=== PATIENT | female | born 1985 | race Two or more races ===

== ENCOUNTER 2018-11-20 20:36 | Emergency (ER) | payer SELFPAY ==
[~2018-11-20] VITALS: Ht 162.6 cm; Wt 59.0 kg
--- NOTE | 2018-11-20 20:37 | NUR ---
Note [email or web address] in EDM - 11/20/18 at 2044 by ANALIA ED Nurse Note: PT JOAO RA 28 D/T BEHAVIORAL COMPLAINT. 911 WAS CALLED IN VIA [employer]. PT IS UNABLE TO SPEAK CLEAR SENTENCES. PT IS COVERING FACE WITH BLANKET. PT APPEATS UNKEMPT. PT DENIES PAIN AND SHOWS NO ACUTE SIGNS OF DISTRESS.
--- NOTE | 2018-11-20 20:37 | NUR ---
ED Nurse Note: PT LVA RA 28 D/T BEHAVIORAL COMPLAINT. 911 WAS CALLED IN VIA [employer]. PT IS UNABLE TO SPEAK CLEAR SENTENCES. PT IS COVERING FACE WITH BLANKET. PT APPEARS UNKEMPT. PT DENIES PAIN AND SHOWS NO ACUTE SIGNS OF DISTRESS.
[2018-11-20 20:39] VITALS: BP 136/76
--- NOTE | 2018-11-20 21:00 | NUR ---
ED Nurse Note: PT WALKED OUT OF BED AND URINATED ON FLOOR, PT WAS ASSISTED BACK TO BED AND CLEANED. EVS WAS CALLED.
[2018-11-20] MEDS ORDERED: Haloperidol 5mg/ml Inj IM ONE (21:15)
--- NOTE | 2018-11-20 22:33 | NUR ---
ED Nurse Note: pt in bed resting, provided pt with additinoal blanket.
[2018-11-20 22:34] VITALS: BP 131/72
--- NOTE | 2018-11-21 00:35 | NUR ---
ED Nurse Note: pt is in the room asleep, vss, no acute signs of distress noted. will continue to monitor.
[2018-11-21 00:36] VITALS: BP 124/79
[2018-11-21 02:15] VITALS: BP 131/82
--- NOTE | 2018-11-21 02:15 | NUR ---
ED Nurse Note: pt is still asleep in room, vss
--- NOTE | 2018-11-21 02:37 | Emergency Room Report ---
History of Present Illness General Chief Complaint: Behavioral Complaint Source: Patient Present Illness HPI This is a 33-year-old female came in as a Selena Brumfield. She presents with chief complaint of agitation. She was walking around the neighborhood yelling. They called 911. Patient refused to give her name of the same name is Ashley. She was agitated. Denies any alcohol or drugs. Denies any other complaint. Denies suicidal thoughts homicidal thought. Allergies: Coded Allergies: No Known Allergies (Unverified , 11/20/18) Patient History Past Medical History: see triage record, old chart reviewed, psych hx Past Surgical History: unable to obtain Family History: unable to obtain Social History: other Now: No Immunizations: other Reviewed Nursing Documentation: PMH: Agreed; PSxH: Agreed Nursing Documentation-PMH Past Medical History: No Stated History Review of Systems ENT: Denies: sore throat Cardiovascular: Denies: chest pain, palpitations Gastrointestinal/Abdominal: Denies: nausea, vomiting, diarrhea Musculoskeletal: Denies: back problems Skin: Denies: rash Neurological: Denies: RODRIGES, seizures All Other Systems: negative except mentioned in HPI Physical Exam Vital Signs Date Time Temp Pulse Resp B/P (MAP) Pulse Ox O2 Delivery O2 Flow Rate FiO2 11/20/18 20:33 98.8 120 18 136/76 (96) 98 Room Air Vitals with tachycardia Sp02 EP Interpretation: reviewed, normal General Appearance: alert/responsive, no apparent distress, non-toxic, other - Agitated Head: normocephalic, atraumatic Eyes: PERRL, EOMI ENT: oropharynx normal Neck: supple/symm/no masses Respiratory: effort normal, no rhonchi, no wheezing Cardiovascular: no murmur, gallop, rub Gastrointestinal: non-tender, no mass, non-distended, no rebound/guarding, normal bowel sounds Musculoskeletal: gait & station normal Neurologic: oriented x3, sensory intact, motor strength/tone normal Skin: no rash, normal palpation Medical Decision Making Diagnostic Impression: Primary Impression: Acute psychosis ER Course Presents with acute psychosis. This is probably secondary to compliance with her psychiatric medicine and/or substance abuse. Patient several hours. Now able to give her name and date of . Not suicidal homicidal. Does not want to go to nursing home. Will discharge home in the morning. Last Vital Signs Date Time Temp Pulse Resp B/P (MAP) Pulse Ox O2 Delivery O2 Flow Rate FiO2 11/21/18 00:36 98.8 103 15 124/79 99 Room Air Status: improved Disposition: HOME, SELF-CARE Condition: Stable Scripts Olanzapine* (ZYPREXA*) 5 Mg Tablet 5 MG ORAL DAILY, #30 TAB Prov: Clay Cardenas MD 11/21/18 Referrals: NOT CHOSEN [facility]/MD,REFERRING (PCP) Patient Instructions: Self-Destructive Behavior Additional Instructions: Follow-up with mental health within a week. Return if symptoms worsen. Clay Cardenas MD Nov 21, 2018 02:37
[2018-11-21 04:51] VITALS: BP 128/86
--- NOTE | 2018-11-21 04:51 | NUR ---
ED Nurse Note: pt resting in bed, pt offered food but refused.
[2018-11-21] MEDS ORDERED: ZYPREXA5 MG ORAL (05:12)
[2018-11-21 06:05] VITALS: BP 121/83
--- NOTE | 2018-11-21 06:05 | NUR ---
ER DISCHARGE NOTE: Patient is cleared to be discharged per ERMD, pt is aox4, on room air, with stable vital signs. pt was given dc instructions, pt was able to verbalize understanding, pt id band removed. pt is able to ambulate with steady gait. pt took all belongings.
== END 2018-11-21 06:05 | disposition home or self-care (01) ==
LOC: EDBD 20:36 → EMR 21:00
DX: F23 Brief psychotic disorder (principal)
CPT/HCPCS: 96372; 99283; J1630